=== PATIENT | female | born 1975 | race American Indian/Alaskan Native ===

== ENCOUNTER 2018-01-29 13:27 | Emergency (ER) | payer SELFPAY ==
[2018-01-29] MEDS ORDERED: MOTRIN ONE (16:45)
[2018-01-29] MEDS ORDERED: MOTRIN PO ONE (16:46)
--- NOTE | 2018-01-29 17:46 | Emergency Department Report ---
ED ENT HPI - General Chief complaint: Dental/Oral Stated complaint: TOOTHACHE Time Seen by Provider: 01/29/18 16:58 Source: patient Mode of arrival: Ambulatory Limitations: No Limitations - History of Present Illness Initial comments: This is a 42-year-old -[place] female presents with facial swelling on left side and a toothache for 3 days. Patient reports having toothache for multiple months now but no longer has insurance so she decided to use home remedies to improve symptoms. She reports the filling on the left lower molar fell out causing constant pain that is 10 out of 10 on pain scale and difficulty chewing. Denies difficulty swallowing, fever, sore throat, recent trauma, and injury. MD complaint: tooth pain (#18 dental caries) -: days(s) (3 days) Location: tooth # (18) Severity: severe Severity scale (0 -10): 10 Quality: stabbing, aching, other (throbbing) Consistency: constant Improves with: none Worsens with: eating Context- Dental: history of dental caries, poor dental care Associated Symptoms: gum swelling, toothache. denies: fever, cough, pain with swallowing, sore throat, tinnitus, hearing loss, discharge from ear, rhinorrhea - Related Data Previous Rx's Medication Instructions Recorded Last Taken Type Ibuprofen [Motrin] 800 mg PO TID PRN #20 tablet 08/31/13 Unknown Rx Penicillin Vk [Veetids TAB] 2 tab PO BID #40 tablet 08/31/13 Unknown Rx Amoxicillin/Potassium Clav 1 each PO BID 10 Days #20 tablet 01/29/18 Unknown Rx [Augmentin 500-125 Tablet] traMADol [Ultram 50 MG tab] 50 mg PO Q6HR PRN #15 tablet 01/29/18 Unknown Rx Allergies Allergy/AdvReac Type Severity Reaction Status Date / Time No Known Allergies Allergy Verified 01/29/18 13:27 ED Dental HPI - General Chief complaint: Dental/Oral Stated complaint: TOOTHACHE Time Seen by Provider: 01/29/18 16:58 Source: patient Mode of arrival: Ambulatory Limitations: No Limitations - Related Data Previous Rx's Medication Instructions Recorded Last Taken Type Ibuprofen [Motrin] 800 mg PO TID PRN #20 tablet 08/31/13 Unknown Rx Penicillin Vk [Veetids TAB] 2 tab PO BID #40 tablet 08/31/13 Unknown Rx Amoxicillin/Potassium Clav 1 each PO BID 10 Days #20 tablet 01/29/18 Unknown Rx [Augmentin 500-125 Tablet] traMADol [Ultram 50 MG tab] 50 mg PO Q6HR PRN #15 tablet 01/29/18 Unknown Rx Allergies Allergy/AdvReac Type Severity Reaction Status Date / Time No Known Allergies Allergy Verified 01/29/18 13:27 ED Review of Systems ROS: Stated complaint: TOOTHACHE Other details as noted in HPI Constitutional: denies: chills, fever ENT: dental pain. denies: ear pain, throat pain, hearing loss, epistaxis, congestion Respiratory: denies: cough, shortness of breath, wheezing Cardiovascular: denies: chest pain, palpitations Gastrointestinal: denies: abdominal pain, nausea, vomiting, diarrhea Skin: denies: rash, lesions Neurological: denies: headache, weakness, numbness, paresthesias Psychiatric: denies: anxiety, depression ED Past Medical Hx - Past Medical History Previous Medical History?: No - Surgical History Past Surgical History?: No - Social History Smoking Status: Never Smoker Substance Use Type: None - Medications Home Medications: Home Medications Medication Instructions Recorded Confirmed Last Taken Type Ibuprofen [Motrin] 800 mg PO TID PRN #20 tablet 08/31/13 Unknown Rx Penicillin Vk [Veetids TAB] 2 tab PO BID #40 tablet 08/31/13 Unknown Rx Amoxicillin/Potassium Clav 1 each PO BID 10 Days #20 tablet 01/29/18 Unknown Rx [Augmentin 500-125 Tablet] traMADol [Ultram 50 MG tab] 50 mg PO Q6HR PRN #15 tablet 01/29/18 Unknown Rx ED Physical Exam - General Limitations: No Limitations General appearance: alert, in no apparent distress - ENT ENT exam: Present: mucous membranes moist, other (dental caries that #18 with mild swelling of surrounding mucosa, tender, no abscess or drainage) - Respiratory Respiratory exam: Present: normal lung sounds bilaterally. Absent: respiratory distress - Cardiovascular Cardiovascular Exam: Present: regular rate, normal rhythm, normal heart sounds. Absent: systolic murmur, diastolic murmur, rubs, gallop - GI/Abdominal GI/Abdominal exam: Present: soft, normal bowel sounds. Absent: organomegaly, mass - Neurological Exam Neurological exam: Present: alert, oriented X3, normal gait - Psychiatric Psychiatric exam: Present: normal affect, normal mood - Skin Skin exam: Present: warm, dry, intact, normal color. Absent: rash ED Course Vital Signs 01/29/18 01/29/18 13:28 17:37 Temperature 98.6 F Pulse Rate 64 Respiratory 18 18 Rate Blood Pressure 124/72 O2 Sat by Pulse 99 Oximetry ED Medical Decision Making - Medical Decision Making This is a 42-year-old female that presents with tooth ache and left side facial swelling for 3 days. Patient is stable and was examined by me. Given Motrin 800 by mouth once in ER. Susceptible of dental caries. Discussed plan with patient. She agreed with ER plan. Discharged home with augmentin and tramadol. Follow up with dentist and referrals given. Critical care attestation.: If time is entered above; I have spent that time in minutes in the direct care of this critically ill patient, excluding procedure time. ED Disposition Clinical Impression: Dental caries, Toothache Disposition: TO HOME OR SELFCARE Is pt being admited?: No Does the pt Need Aspirin: No Condition: Stable Instructions: Dental Caries (ED), Toothache (ED) Additional Instructions: Complete all days of augmentin as prescribed for 10 days. Take tramadol every 6 hours as needed for pain. Follow up with Dentist at in 24-72 hours. Prescriptions: Amoxicillin/Potassium Clav [Augmentin 500-125 Tablet] 1 each PO BID 10 Days #20 tablet traMADol [Ultram 50 MG tab] 50 mg PO Q6HR PRN #15 tablet PRN Reason: Pain Referrals: [facility] [Outside] - 3-5 Days [facility] [Outside] - 3-5 Days [facility] [Outside] - 3-5 Days [facility] [Outside] - 3-5 Days Time of Disposition: 19:03 Print Language: AZERI
[2018-01-29 19:20] VITALS: BP 132/76
== END 2018-01-29 19:20 | disposition home or self-care (01) ==
LOC: ED 13:27
DX: K02.9 Dental caries, unspecified (principal)
CPT/HCPCS: 99282